=== PATIENT | male | born 1995 | race Caucasian/White ===

== ENCOUNTER 2025-02-04 15:03 | Emergency (ER) | payer BC, SELFPAY ==
[2025-02-04 15:22] VITALS: BP 153/73; PULSE 75; RESP 20; TEMP 37.1; O2SAT 100
--- NOTE | 2025-02-04 16:38 | ED_ITS ---
HPI - Abdominal Pain General Chief Complaint: Abdominal Pain Stated Complaint: I think I'm having an appendix problem Time Seen by Provider: 02/04/25 16:38 Focused HPI: Patient is a 29-year-old male who presents the ED with report of right lower abdominal pain. Patient reports having dull pain in his RLQ for the past couple days. Pain became worse today. Began having N/V today. Denies fever, diarrhea, constipation, dysuria, hematuria. Reported hx of oblique strain a few years ago which felt similar, but states he has not done anything to strain himself. GENERAL: Mildly uncomfortable-appearing, obese with BMI of 34.3, and in no acute distress. HEAD: Normocephalic, atraumatic. CHEST: Clear to auscultation. ?No respiratory distress. HEART: Regular rate and rhythm.? ABD: Mild diffuse tenderness throughout abdomen, worst in RLQ, R mid abd NEURO: ?Alert and oriented x3. Patient screened in triage and initial orders placed.? ?Additional care and disposition to be based upon?diagnostic testing and treatment. Source: patient Mode of arrival: ambulatory Limitations: no limitations Related Data Allergies Allergy/AdvReac Type Severity Reaction Status Date / Time nickel Allergy Rash Verified 02/04/25 15:24 [facility] Family History Family History (Updated 08/24/09 @ 14:53 by DOCTOR UNKNOWN) Grandparent Diabetes mellitus Social History Social History Smoking status: Never smoker Second hand tobacco smoke exposure: No Course Vital Signs Vital signs: Vital Signs Temperature 98.7 F 02/04/25 15:22 Pulse Rate 75 02/04/25 15:22 Respiratory Rate 20 02/04/25 15:22 Blood Pressure 153/73 H 02/04/25 15:22 Pulse Oximetry 100 02/04/25 15:22 Oxygen Delivery Room Air 02/04/25 15:22 Temperature 98.7 F 02/04/25 15:22 Pulse Rate 75 02/04/25 15:22 Respiratory Rate 20 02/04/25 15:22 Blood Pressure 153/73 H 02/04/25 15:22 Pulse Oximetry 100 02/04/25 15:22 Oxygen Delivery Room Air 02/04/25 15:22 [facility] MDM Narrative Medical decision making narrative: MSE by KRYS in triage. Patient left after initial MSE before further work up or care. Differential Diagnosis Differential Diagnosis: constipation, sbo, appendicitis, ureterolithiasis Discharge Plan Discharge Clinical Impression: Right lower quadrant abdominal pain Patient Disposition: Elopement After Seen by Prov Instructions: Antibiotic Form Patient Language: Indonesian Follow-up/Referrals: Amanuel,KELSIE Simms [Primary Care Provider, Unknown]
--- NOTE | 2025-02-04 17:20 | PC.NURSE ---
Pt declined to be seen due to wait time. Pt ambulated out in NAD.
--- OUTSIDE RECORDS SUMMARY | 2025-02-04 17:28 | XMS_ITS | Clinical Summary ---
Author Organization [facility] Address [address] [place] [address] Phone Care Team Providers Care Automotive Parts Counter Person Name Role Phone Unavailable Primary Care Provider Unavailabl e Allergies No known active allergies Medications No known medications Social History Tobacco Use Types Packs/Day Years Used Date Smoking Tobacco: Never Smokeless Tobacco: Never Alcohol Use Standard Drinks/Week Comments No 0 (1 standard drink = 0.6 oz pur e alcohol) Sex and Gender Information Value Date Recorded Sex Assigned at Not on file Legal Sex Male 6:19 PM CDT Gender Identity Not on file Sexual Orientation Not on file Last Filed Vital Signs Vital Sign Reading Time Taken Comments Blood Pressure 126/72 09/30/2016 9:43 PM CDT Pulse - - Temperature 37 C (98.6 F) 09/30/2016 6:22 PM CDT Respiratory Rate 18 09/30/2016 9:43 PM CDT Oxygen Saturation 98% 09/30/2016 9:43 PM CDT Inhaled Oxygen Concentration - - Weight 104.3 kg (230 lb) 09/30/2016 6:22 PM CDT Height 185.4 cm (6' 1) 09/30/2016 6:22 PM CDT Body Mass Index 30.34 09/30/2016 6:22 PM CDT Plan of Treatment Health Maintenance Due Date Last Done Comments DTAP/TDAP/TD VACCINES (1 - Tdap) 2013 HEPATITIS B VACCINES (1 of 3 - 19+ 3-dose series) 05/2013 INFLUENZA VACCINE (#1) 2024 HPV VACCINES (No Doses Required) Completed Insurance [facility]
--- OUTSIDE RECORDS SUMMARY | 2025-02-04 17:28 | XMS_ITS | Encounter Summary ---
Author Organization [facility] Address [address] [place] [address] Care Team Providers Care Ore Tester Name Role Phone Stephanie Orr PT Unavailable Unavailable Demi Vital Primary Care Provider [phone] Encounter Details Date Type Department Care Team (Late st Contact Info) Description 01/29/2025 Results Follow-Up [facility] Family Medicine [address] [place] [address] Demi Vital PA [address] [place] [address] XR Chest PA Lateral 2 Views Social History Tobacco Use Types Packs/Day Years Used Date Smoking Tobacco: Never Smokeless Tobacco: Never Alcohol Use Standard Drinks/Week Comments Yes 1 (1 standard drink = 0.6 oz pur e alcohol) social PHQ-2 Answer Date Recorded PHQ-2 Total Score (If total score is 3 or more points, staff should administer the PHQ-9) 0 01/29/2025 AUDIT-C Answer Date Recorded Q1: How often do you have a drink containing alc ohol? 2-4 times a month 01/29/2025 Q2: How many drinks containi ng alcohol do you have on a typical day when you are drinking? 1 or 2 01/29/2025 Q3: How often do you have si x or more drinks on one occasion? Less than monthly 01/29/2025 Personal Safety Answer Date Recorded Have you ever been in or are you currently in a harmful physical or emotional relationship or is someone making you feel afraid or unsafe? Denies 05/05/2024 Sex and Gender Information Value Date Recorded Sex Assigned at Not on file Legal Sex Male 3:21 AM SCOWMAN Gender Identity Male 02/16/2020 9:55 AM SCOWMAN Sexual Orientation Straight 02/16/2020 9: 55 AM SCOWMAN Occupation Industry Job Start Date Job End Date [employer] Est[employer] Not on file Not on file Not on file documented as of this encounter Plan of Treatment Not on file documented as of this encounter Visit Diagnoses Not on filedocumented in this encounter Care Teams Ore Tester Relationship Specialty Start Date End Date Demi Vital PA [address] [address] PCP - General Internal Medicine 07/01/18 Stephanie Orr PT Physical Therapist Physical Therapy 07/24/17 documented as of this encounter
--- OUTSIDE RECORDS SUMMARY | 2025-02-04 17:28 | XMS_ITS | Clinical Summary ---
Author Organization [facility] Address [address] [place] [address] Care Team Providers Care Wood Handler Name Role Phone Unavailable Primary Care Provider Unavailabl e Source Comments [facility] [employer],non-owned Affiliates and Associated Physician Practices is amultiple site organization consisting of ambulatory clinics and hospital sitesin [place], [place], [place] and [place]. This disclosure is being madepursuant to the Care Everywhere program and may not contain all information available regarding this patient. 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 Gender Identity Not on file Sexual Orientation Not on file Plan of Treatment Health Maintenance Due Date Last Done Comments HIV SCREENING 2009 HEPATITIS C SCREENING 11/10/2012 DTAP/TDAP/TD VACCINES (1 - Tdap) 2013 HEPATITIS B VACCINE (1 of 3 - 19+ 3-dose series) 2013 HPV VACCINE (1 - 3-dose SCDM series) 2021 DEPRESSION SCREENING 02/13/2024 COVID-19 VACCINE (1 - 2024-2 6 season) 2024 INFLUENZA VACCINE (#1) 2024 ZOSTER VACCINE (1 of 2) 2044 HIB VACCINE Aged Out No longer eligi ble based on patient's age to complete this topic MENINGOCOCCAL (Group B) VACC INE SHARED DECISION-MAKING Aged Out No longer eligibl e based on patient's age to complete this topic MENINGOCOCCAL GROUPS A/C/Y/W VACCINE Aged Out No longer eligible b ased on patient's age to complete this topic PNEUMOCOCCAL VACCINE Aged Out No long er eligible based on patient's age to complete this topic Insurance [employer]
--- OUTSIDE RECORDS SUMMARY | 2025-02-04 17:28 | XMS_ITS | Encounter Summary ---
Author Organization [facility] Address [address] [place] [address] Care Team Providers Care Chyron Operator Name Role Phone Unavailable Primary Care Provider Unavailabl e Encounter Details Date Type Department Care Team (Late st Contact Info) Description 10/23/2022 Lab Requisition [facility] - DermPath Lab [address] [place] [address] Nikki Qiu DO [address] [facility] [address] [place] [address] Social History Tobacco Use Types Packs/Day Years Used Date Smoking Tobacco: Never Assessed Sex and Gender Information Value Date Recorded Sex Assigned at Not on file Legal Sex Male 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 DermPath Lab Received: 10/24/2022 06:30 AM Pathologist: Kayley Lyon MD Specimen: Skin, left shoulder 3 5:24 PM CDT DERMATOPATHOLOGY LABORATORY Final Diagnosis Specimen A. 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 The specimen consists of a shave biopsy measuring 11x9x2 mm. Jar 0. 3 5:24 PM CDT DERMATOPATHOLOGY LABORATORY Microscopic Description Specimen A. SKIN, left shoulder: There is a lentiginous proliferation of nevus cells at the dermal-epidermal junction between focal nests. Within the dermis, there are nests of small, monomorphous melanocytes. Above this, there are fibroblasts and collagen bundles oriented parallel to the skin surface consistent with a dermal scar. Some melanocytes are splayed between collagen bundles and are localized around adnexal structures. MART-1/Melan-A immunohistochemical stain highlights the melanocytes as above. HMB45 stain is partially lost in the dermal melanocytes with dermal descent. P16 staining is retained. Within the dermis, there is also space lined by epithelium that resembles normal epidermis and the infundibular portion of the hair follicle. 3 5:24 PM CDT DERMATOPATHOLOGY LABORATORY Disclaimer An external and internal positive and negative controls are appropriate for the histochemical, immunohistochemical and immunofluorescence stain(s) in this case (if any), except where stated explicitly. The performance characteristics of the stain(s) cited in this report were developed and its performance characteristic determined by the Dermatopathology Laboratory at [facility], directed by Dr. Feliberto Holm. These tests need not be, and therefore are not, approved by the [place] Food and Drug Administration. The tests are used for clinical purposes. Billing Codes Specimen Charges Stain Charges 67465 1 25711 [id number] 1 1 1 3 5:24 PM CDT DERMATOPATHOLOGY LABORATORY Embedded Images 3 5:24 PM CDT DERMATOPATHOLOGY LABORATORY Pathology/Cytolo gy TISSUE SPECIMEN FROM SKIN / Unknown 10/23/2022 8:45 AM CDT 10/24/2022 6:30 AM CDT us Nikki Qiu DO LAB - PATHOLOGY/CYTOLOGY ORDERABLES Final Result DERMATOPATHOLOGY LABORATORY [facility] - Department of Dermatology [facility] Medicine [facility], 3rd Floor [address] [phone] documented in this encounter Visit Diagnoses Not on filedocumented in this encounter
--- OUTSIDE RECORDS SUMMARY | 2025-02-04 17:28 | XMS_ITS | Encounter Summary ---
Author Organization [facility] Address [address] [place] [address] Care Team Providers Care Data Architect Manager Name Role Phone Unavailable Primary Care Provider Unavailabl e Encounter Details Date Type Department Care Team (Late st Contact Info) Description 03/03/2024 Lab Requisition [facility] - DermPath Lab [address] [place] [address] Nikki Qiu DO [address] [facility] [address] [place] [address] Social History Tobacco Use Types Packs/Day Years Used Date Smoking Tobacco: Never Assessed Sex and Gender Information Value Date Recorded Sex Assigned at Not on file 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 Gender Identity Not on file Sexual Orientation Not on file documented as of this encounter Plan of Treatment Not on file documented as of this encounter Procedures Procedure Name Priority Date/Time Associated Diagnosis Comments DERMATOPATHOLOGY Routine 03/03/2024 7:40 AM OFFSET MACHINE OPERATOR documented in this encounter Results * DERMATOPATHOLOGY (03/03/2024 7:40 AM OFFSET MACHINE OPERATOR) Case Report Dermatopathology Report Case: [id number] Authorizing Provider: Nikki Qiu DO Collected: 03/03/2024 07:40 AM Ordering Location: [facility] Physician [facility] - Received: 03/03/2024 04:15 PM DermPath Lab Pathologist: Kayley Lyon MD Specimen: Skin, left upper back 4:38 PM OFFSET MACHINE OPERATOR DERMATOPATHOLOGY LABORATORY Final Diagnosis Specimen A. 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 The specimen consists of a shave biopsy measuring 10x8x1 mm. Jar 0. 4:38 PM [facility] DERMATOPATHOLOGY LABORATORY Microscopic Description Specimen A. SKIN, left upper back: This is a compound nevus. There is melanin pigment within the stratum corneum. There is a lentiginous proliferation of melanocytes between nests of cells along the dermal-epidermal junction, highlighted by MART-1/Melan-A immunohistochemical staining. There is underlying fibroplasia of the papillary dermis. The intradermal component is bland appearance and matures with depth. Some melanocytes are splayed between collagen bundles and are localized around adnexal structures. There is a lymphohistiocytic infiltrate within the dermis. Original and deeper sections were reviewed. (Compound Vern's Nevus) This lesion is present at the margin of the specimen. COMMENT: The histopathologic findings of the portion of the lesion sampled are reassuring. However, as this lesion is present at the margins of the specimen, clinicopathological correlation is recommended as to the nature of the remaining lesion. 4:38 PM [facility] DERMATOPATHOLOGY LABORATORY Disclaimer An external and internal positive and negative controls are appropriate for the histochemical, immunohistochemical and immunofluorescence stain(s) in this case (if any), except where stated explicitly. The performance characteristics of the stain(s) cited in this report were developed and its performance characteristic determined by the Dermatopathology Laboratory at [facility], directed by Dr. Feliberto Holm. These tests need not be, and therefore are not, approved by the [place] Food and Drug Administration. The tests are used for clinical purposes. Billing Codes Specimen Charges Stain Charges 60445 1 46838 1 4:38 PM [facility] DERMATOPATHOLOGY LABORATORY Embedded Images 4:38 PM [facility] DERMATOPATHOLOGY LABORATORY Pathology/Cytolo gy TISSUE SPECIMEN FROM SKIN / Unknown 03/03/2024 7:40 AM OFFSET MACHINE OPERATOR 03/03/2024 4:15 PM [facility] Nikki Qiu DO LAB - PATHOLOGY/CYTOLOGY ORDERABLES Final Result DERMATOPATHOLOGY LABORATORY [facility] - Department of Dermatology [facility] Medicine [address] [place] [address], [address] [phone] documented in this encounter Visit Diagnoses Not on filedocumented in this encounter
--- OUTSIDE RECORDS SUMMARY | 2025-02-04 17:28 | XMS_ITS | Clinical Summary ---
Author Organization [email or web address] Address [address] [place] [address] Care Team Providers Care Burglar Alarm Installer Name Role Phone No, Pcp HORSE RIDING COACH OR INSTRUCTOR Primary Care Provider Unavailabl e Allergies No known active allergies Medications No known medications Family History Relation Status Comments Father Alive Mother Alive Social History Tobacco Use Types Packs/Day Years Used Date Smoking Tobacco: Never Sex and Gender Information Value Date Recorded Sex Assigned at Not on file Legal Sex Male 1:45 PM EST Gender Identity Not on file Sexual Orientation Not on file Last Filed Vital Signs Vital Sign Reading Time Taken Comments Blood Pressure 120/78 04/02/2016 12:53 PM RN CLINICAL Pulse 100 04/02/2016 12:53 PM RN CLINICAL Temperature 37.5 C (99.5 F) 04/02/2016 12:53 PM RN CLINICAL Respiratory Rate 18 04/02/2016 12:53 PM RN CLINICAL Oxygen Saturation 98% 04/02/2016 12:53 PM RN CLINICAL Inhaled Oxygen Concentration - - Weight 97.5 kg (215 lb) 04/02/2016 12:53 PM RN CLINICAL Height 185.4 cm (6' 1) 04/02/2016 12:53 PM RN CLINICAL Body Mass Index 28.37 04/02/2016 12:53 PM RN CLINICAL Plan of Treatment Not on file Medical Devices Not on [place] [id number] [employer] Care Teams Burglar Alarm Installer Relationship Specialty Start Date End Date No, Pcp, HORSE RIDING COACH OR INSTRUCTOR N/A Do not use PCP - General 04/02/16
--- OUTSIDE RECORDS SUMMARY | 2025-02-04 17:28 | XMS_ITS | Clinical Summary ---
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 04/06/2022 Depression Screening 01/29/2026 01/29/2025, 11/04/2024, 05/12/2024, Additional history exists DTaP/Tdap/Td Vaccine (6 - Td or Tdap) 04/06/2032 04/06/2022, 06/09/1996, 06/14/1995, Additional history exists Influenza Vaccine Completed 11/04/2024, , 12/13/2018, Additional history exists Pneumococcal vaccine <65 Aged Out No longer eligible based on patient's age to complete this topic Procedures Procedure Name Priority Date/Time Associated Diagnosis Comments XR CHEST PA LATERAL 2 VIEWS Schedule Routine, Read Routine (OP Routine) 01/29/2025 10:22 AM RISK CONTROL SPECIALIST Subacute cough from Last 3 Months Results * XR Chest PA Lateral 2 Views (01/29/2025 10:22 AM RISK CONTROL SPECIALIST) Anatomical Region Laterality Modality Body, Chest N/A Computed Radiogr aphy 01/29/2025 2:05 PM RISK CONTROL SPECIALIST Impressions 01/29/2025 2:05 PM RISK CONTROL SPECIALIST No evidence of an acute cardiopulmonary abnormality. Electronically signed by: Arnoldo Fitzgerald M.D. Narrative 01/29/2025 2:05 PM RISK CONTROL SPECIALIST EXAM DESCRIPTION: XR CHEST PA LATERAL 2 VIEWS REASON FOR STUDY: Productive cough for 4 weeks. TECHNIQUE: XR CHEST PA LATERAL 2 VIEWS COMPARISON: None. FINDINGS: There is no focal consolidation. No pleural effusion or pneumothorax. Cardiac and mediastinal silhouette are normal. No acute osseous abnormality. Procedure Note Arnoldo Fitzgerald MD - 01/29/2025 EXAM DESCRIPTION: XR CHEST PA LATERAL 2 VIEWS REASON FOR STUDY: Productive cough for 4 weeks. TECHNIQUE: XR CHEST PA LATERAL 2 VIEWS COMPARISON: None. FINDINGS: There is no focal consolidation. No pleural effusion or pneumothorax. Cardiac and mediastinal silhouette are normal. No acute osseous abnormality. IMPRESSION: No evidence of an acute cardiopulmonary abnormality. Electronically signed by: Arnoldo Fitzgerald M.D. 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 [place] [address] PCP - General Internal Medicine 07/01/18 Stephanie Orr PT Physical Therapist Physical Therapy 07/24/17
--- OUTSIDE RECORDS SUMMARY | 2025-02-04 17:28 | XMS_ITS | Clinical Summary ---
Author Organization [facility] Address [address] 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 Name Role Phone Unavailable Primary Care Provider Unavailabl e Allergies No known active allergies Social History Tobacco Use Types Packs/Day Years Used Date Smoking Tobacco: Never Smokeless Tobacco: Never Alcohol Use Standard Drinks/Week Comments No 0 (1 standard drink = 0.6 oz pur e alcohol) Sex and Gender Information Value Date Recorded Sex Assigned at Not on file Legal Sex Male 6:52 AM PATIENT PARTNER Gender Identity Not on file Sexual Orientation Not on file Last Filed Vital Signs Vital Sign Reading Time Taken Comments Blood Pressure 126/72 09/30/2016 9:43 PM CDT Pulse - - Temperature 37 C (98.6 F) 09/30/2016 6:22 PM CDT Respiratory Rate 18 09/30/2016 9:43 PM CDT Oxygen Saturation - - Inhaled Oxygen Concentration - - Weight 104.3 [...]
== END 2025-02-04 17:57 | disposition left against medical advice (07) ==
LOC: ANHED 17:26
PROVIDERS: Emergency Provider Physician Assistant; PCP Physician Assistant
DX: R10.31 Right lower quadrant pain (principal)
CPT/HCPCS: 99199; 99281